=== PATIENT | female | born 1950 | race Caucasian/White ===

== ENCOUNTER 2018-09-27 17:25 | Emergency (ER) | payer SELFPAY ==
[~2018-09-27] VITALS: Ht 152.4 cm; Wt 65.8 kg
[2018-09-27 17:51] VITALS: Ht 152.4 cm; Wt 65.8 kg
[2018-09-27 20:45] VITALS: BP 129/71
== END 2018-09-27 20:45 | disposition home or self-care (01) ==
LOC: ED 17:25
DX: S52.502A Unspecified fracture of the lower end of left radius, initial encounter for closed fracture (principal); S52.602A Unspecified fracture of lower end of left ulna, initial encounter for closed fracture; S60.221A Contusion of right hand, initial encounter; S30.0XXA Contusion of lower back and pelvis, initial encounter; W11.XXXA Fall on and from ladder, initial encounter; Y93.89 Activity, other specified; Y92.89 Other specified places as the place of occurrence of the external cause; Y99.8 Other external cause status
CPT/HCPCS: A4570; G0500; J3010; J3490; Q0092